=== PATIENT | female | born 1990 | race Caucasian/White ===

== ENCOUNTER 2018-07-19 16:40 | Emergency (ER) | payer OTHER ==
--- NOTE | 2018-07-19 17:14 | Emergency Department Report ---
Blank Doc - Documentation Documentation: 27 y o female presents with zapata, swollen lymphnodes x 6days started with nasal bleed, had a cold before sx started cannot swaLLOW FOOD x 2 days ONLY LIQUID cANNOT OPEN MOUTH DUE TO PAIN This initial assessment diagnostic orders/clinical plan/treatment (s) is/Are subject change based on patient's health status, clinical progression and re- assessment by fellow clinical providers in the ED. Further treatment and work-up at subsequent clinical providers discretion. Patient/guardians urged not to elope from their condition may be serious if not clinically assessed and managed. Initial order include: LABS cT NECK
[2018-07-19 18:09] LABS: Alanine Aminotransferase 14 units/L (7-56); Albumin 3.8 g/dL (3.9-5); BUN/Creatinine Ratio 18; Blood Urea Nitrogen 7 mg/dL (7-17); Calcium 9.1 mg/dL (8.4-10.2); Hemolysis Index 7
[2018-07-19 18:10] LABS: Basophils # (Auto) 0.1 K/mm3 (0.0-0.1); Basophils % (Auto) 0.8 % (0.0-1.8); Eosinophils # (Auto) 0.3 K/mm3 (0.0-0.4); Eosinophils % (Auto) 2.7 % (0.0-4.3); Hemoglobin 10.9 gm/dl (10.1-14.3); Lymphocytes # (Auto) 2.4 K/mm3 (1.2-5.4); Lymphocytes % (Auto) 19.7 % (13.4-35.0); Mean Corpuscular HGB Conc 31 % (30-34); Monocytes # (Auto) 0.6 K/mm3 (0.0-0.8); Platelet Count 453 K/mm3 (140-440); Red Blood Count 5.46 M/mm3 (3.65-5.03); Red Cell Distribution Width 16.7 % (13.2-15.2)
[2018-07-19 18:12] LABS: Mean Corpuscular Volume 64 fl (79-97)
[2018-07-19] MEDS ORDERED: HumuLIN R IV ONE (18:14)
[2018-07-19] MEDS ORDERED: TORADOL IV ONE (18:14)
[2018-07-19] MEDS ORDERED: NACL 0.9% 1000 ML 1,000 ML IV ONE (18:14)
[2018-07-19] MEDS ORDERED: DECADRON IV ONE (18:14)
[2018-07-19] MEDS ORDERED: SUBLIMAZE IV ONE (18:14)
[2018-07-19] MEDS ORDERED: LIDOCAINE VISCOUS 2% MM NR (18:15)
[2018-07-19 18:16] LABS: Bilirubin,Urine NEG (Negative); Blood,Urine NEG (Negative); Color,Urine Yellow (Yellow); Mucus,Urine FEW /HPF; Urobilinogen,Urine < 2.0 mg/dL (<2.0)
--- NOTE | 2018-07-19 18:20 | Emergency Department Report ---
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 The patient only takes insulin. The patient presents to the emergency room today with complaint of nontraumatic neck swelling, gingival pain, inability to open her mouth, reported sore throat, malaise, fatigue, possible fever, not coughing. Reports decreased oral intake. Symptoms present for the past 2-3 days, they're constant, worsened with palpation, range of motion, eating, drinking, decreased with rest. -: Gradual Location: face, neck Radiation: non-radiation Severity scale (0 -10): 10 Consistency: intermittent Improves with: other Worsens with: other - Related Data Previous Rx's Medication Instructions Recorded Last Taken Type Acetaminophen [Acetaminophen ORAL 500 mg PO Q4HR PRN #300 ml 07/19/18 Unknown Rx LIQ] Ondansetron [Zofran Odt] 4 mg PO Q8HR PRN #20 tab.rapdis 07/19/18 Unknown Rx RX: Ibuprofen Oral Liqd [Motrin 400 mg PO QID PRN #1 bottle 07/19/18 Unknown Rx Oral Liq 100 mg/5 ml] RX: Penicillin V Potassium 500 mg PO TID #2 soln.recon 07/19/18 Unknown Rx Allergies Allergy/AdvReac Type Severity Reaction Status Date / Time No Known Allergies Allergy Unverified 07/19/18 18:13 ED Review of Systems ROS: Stated complaint: INFLAMMATION IN THROAT/ HIGH BLOOD SUGAR/DIZZINESS Other details as noted in HPI Constitutional: malaise Eyes: denies: vision change ENT: throat pain. denies: epistaxis, congestion Respiratory: denies: cough Cardiovascular: denies: palpitations Gastrointestinal: nausea Musculoskeletal: arthralgia, myalgia Skin: denies: lesions Neurological: headache, weakness Psychiatric: anxiety ED Past Medical Hx - Past Medical History Previous Medical History?: Yes Hx Hypertension: No Hx CVA: No Hx Heart Attack/AMI: No Hx Congestive Heart Failure: No Hx Diabetes: Yes Hx Deep Vein Thrombosis: No Hx Pulmonary Embolism: No Hx GERD: No Hx Liver Disease: No Hx Renal Disease: No Hx of Cancer: No Hx Sickle Cell Disease: No Hx Arthritis: No Hx Headaches / Migraines: No Hx Seizures: No Hx Kidney Stones: No Hx Psychiatric Treatment: No Hx Asthma: No Hx COPD: No Hx Tuberculosis: No Hx Dementia: No Hx HIV: No - Surgical History Past Surgical History?: No Hx Coronary Stent: No Hx Open Heart Surgery: No Hx Pacemaker: No Hx Internal Defibrillator: No Hx Cholecystectomy: No Hx Appendectomy: No Hx Breast Surgery: No - Social History Smoking Status: Never Smoker Substance Use Type: None - Medications Home Medications: Home Medications Medication Instructions Recorded Confirmed Last Taken Type Acetaminophen [Acetaminophen ORAL 500 mg PO Q4HR PRN #300 ml 07/19/18 Unknown Rx LIQ] Ondansetron [Zofran Odt] 4 mg PO Q8HR PRN #20 tab.rapdis 07/19/18 Unknown Rx RX: Ibuprofen Oral Liqd [Motrin 400 mg PO QID PRN #1 bottle 07/19/18 Unknown Rx Oral Liq 100 mg/5 ml] RX: Penicillin V Potassium 500 mg PO TID #2 soln.recon 07/19/18 Unknown Rx ED Physical Exam - General Limitations: Language Barrier General appearance: alert, in no apparent distress, anxious - Head Head exam: Present: atraumatic, normocephalic - Eye Eye exam: Present: normal appearance, EOMI. Absent: nystagmus - ENT ENT exam: Present: normal exam, normal orophraynx, normal external ear exam, other (he shouldn't is noted intermittently to be speaking in full sentences. At times, does not open her mouth fully, and at other times, she does. She does not have stridor, may have mild trismus.) - Neck Neck exam: Present: normal inspection, tenderness (there is lateral neck tenderness), full ROM, lymphadenopathy. Absent: meningismus - Respiratory Respiratory exam: Present: normal lung sounds bilaterally. Absent: respiratory distress - Cardiovascular Cardiovascular Exam: Present: regular rate, normal rhythm. Absent: systolic murmur, diastolic murmur, rubs, gallop - GI/Abdominal GI/Abdominal exam: Present: soft. Absent: distended, tenderness, guarding, rebound, rigid, pulsatile mass - Extremities Exam Extremities exam: Present: normal inspection, full ROM, other (2+ pulses noted i n the bilateral upper, lower extremities. Compartments soft. No long bony tenderness. The pelvis is stable.). Absent: pedal edema, joint swelling, calf tenderness - Back Exam Back exam: Present: normal inspection, full ROM. Absent: tenderness, CVA tenderness (R), paraspinal tenderness, vertebral tenderness - Neurological Exam Neurological exam: Present: alert, other (Extraocular movements intact. Tongue midline. No facial droop. Facial sensation intact to light touch in the V1, V2, V3 distribution bilaterally. 5 and 5 strength in 4 extremities.. Sensation is intact to light touch in 4 extremities.). Absent: motor sensory deficit - Psychiatric Psychiatric exam: Present: anxious - Skin Skin exam: Present: warm, dry, intact, normal color. Absent: rash ED Course Vital Signs 07/19/18 07/19/18 07/19/18 17:12 17:55 18:28 Temperature 98.4 F Pulse Rate 87 Respiratory 18 18 Rate Blood Pressure 113/66 Blood Pressure [Left] O2 Sat by Pulse 100 100 Oximetry 07/19/18 07/19/18 07/19/18 19:15 20:00 21:01 Temperature 98.3 F Pulse Rate 79 86 83 Respiratory 19 14 11 L Rate Blood Pressure 107/61 116/60 Blood Pressure 116/60 [Left] O2 Sat by Pulse 100 100 96 Oximetry - Reevaluation(s) Reevaluation #1: 07/19/18 18:22 Differential diagnosis, including but not limited to: Pharyngitis, deep space neck infection, hyperglycemia, diabetic ketoacidosis Assessment and plan: 27-year-old female with very sensitive oromucosa, who is noted intermittently to be opening up her mouth, although not completely. Reports pain with opening of her mouth. We will treat her symptoms, give IV fluids, give Decadron, obtain CT scan of the neck, rapid strep screen, and reassess. Reevaluation #2: 07/19/18 19:05 Patient tolerated liquid feeds. Strep screen is positive for strep. CT scan pending. Reevaluation #3: 07/19/18 19:47 Care is transferred to the oncoming ER physician, Dr. Kirsten Espinosa, to follow up on CT scan of the neck, and final reassessment. Patient had an episode of vomiting after another assessment, therefore, anti-medic medications have been requested. ED Medical Decision Making - Lab Data Result diagrams: 07/19/18 17:23 07/19/18 17:23 Vital Signs 07/19/18 07/19/18 17:12 17:55 Temperature 98.4 F Pulse Rate 87 Respiratory 18 Rate Blood Pressure 113/66 O2 Sat by Pulse 100 100 Oximetry Lab Results 07/19/18 07/19/18 07/19/18 Range/Units 17:03 17:15 17:23 WBC 12.0 H (4.5-11.0) K/mm3 RBC 5.46 H (3.65-5.03) M/mm3 Hgb 10.9 (10.1-14.3) gm/dl Hct 35.0 (30.3-42.9) % MCV 64 L (79-97) fl MCH 20 L (28-32) pg MCHC 31 (30-34) % RDW 16.7 H (13.2-15.2) % Plt Count 453 H (140-440) K/mm3 Lymph % (Auto) 19.7 (13.4-35.0) % [place] % (Auto) 5.0 (0.0-7.3) % Eos % (Auto) 2.7 (0.0-4.3) % Baso % (Auto) 0.8 (0.0-1.8) % Lymph # 2.4 (1.2-5.4) K/mm3 [place] # 0.6 (0.0-0.8) K/mm3 Eos # 0.3 (0.0-0.4) K/mm3 Baso # 0.1 (0.0-0.1) K/mm3 Seg Neutrophils % 71.8 H (40.0-70.0) % Seg Neutrophils # 8.6 H (1.8-7.7) K/mm3 Sodium (137-145) mmol/L Potassium (3.6-5.0) mmol/L Chloride (98-107) mmol/L Carbon Dioxide (22-30) mmol/L Anion Gap mmol/L BUN (7-17) mg/dL Creatinine (0.7-1.2) mg/dL Estimated GFR ml/min BUN/Creatinine Ratio % Glucose (65-100) mg/dL POC Glucose 334 H (70-105) Calcium (8.4-10.2) mg/dL Magnesium (1.7-2.3) mg/dL Total Bilirubin (0.1-1.2) mg/dL AST (5-40) units/L ALT (7-56) units/L Alkaline Phosphatase (35-129) units/L Total Creatine Kinase (30-135) units/L Total Protein (6.3-8.2) g/dL Albumin (3.9-5) g/dL Albumin/Globulin Ratio % Urine Color Yellow (Yellow) Urine Turbidity Clear (Clear) Urine pH 5.0 (5.0-7.0) Ur Specific [place] 1.046 H (1.003-1.030) Urine Protein 100 mg/dl (Negative) mg/dL Urine Glucose (UA) >=500 (Negative) mg/dL Urine Ketones Neg (Negative) mg/dL Urine Blood Neg (Negative) Urine Nitrite Neg (Negative) Urine Bilirubin Neg (Negative) Urine Urobilinogen < 2.0 (<2.0) mg/dL Ur Leukocyte Esterase Tr (Negative) Urine WBC (Auto) 20.0 H (0.0-6.0) /HPF Urine RBC (Auto) 3.0 (0.0-6.0) /HPF U Epithel Cells (Auto) 1.0 (0-13.0) /HPF Urine Mucus Few /HPF 07/19/18 07/19/18 Range/Units 17:23 17:34 WBC (4.5-11.0) K/mm3 RBC (3.65-5.03) M/mm3 Hgb (10.1-14.3) gm/dl Hct (30.3-42.9) % MCV (79-97) fl MCH (28-32) pg MCHC (30-34) % RDW (13.2-15.2) % Plt Count (140-440) K/mm3 Lymph % (Auto) (13.4-35.0) % [place] % (Auto) (0.0-7.3) % Eos % (Auto) (0.0-4.3) % Baso % (Auto) (0.0-1.8) % Lymph # (1.2-5.4) K/mm3 [place] # (0.0-0.8) K/mm3 Eos # (0.0-0.4) K/mm3 Baso # (0.0-0.1) K/mm3 Seg Neutrophils % (40.0-70.0) % Seg Neutrophils # (1.8-7.7) K/mm3 Sodium 137 (137-145) mmol/L Potassium 3.8 (3.6-5.0) mmol/L Chloride 99.2 (98-107) mmol/L Carbon Dioxide 24 (22-30) mmol/L Anion Gap 18 mmol/L BUN 7 (7-17) mg/dL Creatinine 0.4 L (0.7-1.2) mg/dL Estimated GFR > 60 ml/min BUN/Creatinine Ratio 18 % Glucose 357 H (65-100) mg/dL POC Glucose (70-105) Calcium 9.1 (8.4-10.2) mg/dL Magnesium 1.90 (1.7-2.3) mg/dL Total Bilirubin 0.30 (0.1-1.2) mg/dL AST 12 (5-40) units/L ALT 14 (7-56) units/L Alkaline Phosphatase 122 (35-129) units/L Total Creatine Kinase 26 L (30-135) units/L Total Protein 8.6 H (6.3-8.2) g/dL Albumin 3.8 L (3.9-5) g/dL Albumin/Globulin Ratio 0.8 % Urine Color (Yellow) Urine Turbidity (Clear) Urine pH (5.0-7.0) Ur Specific [place] (1.003-1.030) Urine Protein (Negative) mg/dL Urine Glucose (UA) (Negative) mg/dL Urine Ketones (Negative) mg/dL Urine Blood (Negative) Urine Nitrite (Negative) Urine Bilirubin (Negative) Urine Urobilinogen (<2.0) mg/dL Ur Leukocyte Esterase (Negative) Urine WBC (Auto) (0.0-6.0) /HPF Urine RBC (Auto) (0.0-6.0) /HPF U Epithel Cells (Auto) (0-13.0) /HPF Urine Mucus /HPF - Radiology Data Radiology results: pending, report reviewed Critical care attestation.: If time is entered above; I have spent that time in minutes in the direct care of this critically ill patient, excluding procedure time. ED Disposition Clinical Impression: Strep pharyngitis, Hyperglycemia Disposition: DC-01 TO HOME OR SELFCARE Is pt being admited?: No Does the pt Need Aspirin: No Condition: Stable Instructions: Strep Throat (ED) Additional Instructions: Advance diet as tolerated. Take the pain medications as needed as directed. Take nausea medication as needed/directed. Take antibiotics as directed. Symptoms will likely persist for the next 3-5 days. Advance diet as able to, and consumed liquids as able to. Patient will be contagious, make certain to wash hands very thoroughly with soap and water after coughing, sneezing, handling foods. Follow up with a primary care doctor or otolaryngology specialist within the next 5-7 days. Return to the emergency room right away with projectile vomiting, change in mental status, confusion, inability to tolerate liquid feeds, uncontrollable nausea, vomiting. Dieta anticipada segn lo tolerado. Retreat los analgsicos segn sea necesario segn las indicaciones. Retreat los medicamentos para las nuseas segn sea necesario / indicado. Retreat los antibiticos segn las indicaciones. Es probable que los sntomas persistan ellen los prximos 3 a 5 nieto. Avanzar en la dieta reynaldo sea posible, y consumir lquidos reynaldo poder. El paciente ser contagioso, asegrese de lavarse chaitanya las marion con agua y jabn despus de toser, estornudar y manipular alimentos. [place] un seguimiento con un mdico de atencin primaria o un especialista en otorrinolaringologa en los prximos 5 a 7 nieto. Regrese a la mars de emergencias de inmediato con vmitos con proyectiles, cambios en el estado mental, confusin, incapacidad para tolerar la alimentacin con lquidos, nuseas incontrolables, vmitos. Prescriptions: Acetaminophen [Acetaminophen ORAL LIQ] 500 mg PO Q4HR PRN #300 ml PRN Reason: Fever >101 RX: Ibuprofen Oral Liqd [Motrin Oral Liq 100 mg/5 ml] 400 mg PO QID PRN #1 bottle PRN Reason: Fever >101 Ondansetron [Zofran Odt] 4 mg PO Q8HR PRN #20 tab.rapdis PRN Reason: Nausea RX: Penicillin V Potassium 500 mg PO TID #2 soln.recon Referrals: ROOSEVELT BOWIE MD [Staff Physician] - 3-5 Days [facility] [Provider Group] - 3-5 Days Print Language: [place]
[2018-07-19] MEDS ORDERED: ZOFRAN IV ONE (19:19)
[2018-07-19] MEDS ORDERED: VEETIDS PO ONE (20:30)
--- NOTE | 2018-07-19 21:28 | Cat Scan Report ---
PROCEDURE: CT NECK W CON TECHNIQUE: Computerized axial tomography of the soft tissue neck was performed following the IV inje ction of iodinated nonionic contrast. CT DOSE LENGTH PRODUCT: mGycm HISTORY: neck pain swelling COMPARISONS: None . TECHNICAL QUALITY: Satisfactory. FINDINGS: Skull base: Visualized portions are normal . Paranasal sinuses: Visualized portions are normal . Nasopharynx: Normal . Oral cavity: Normal . Epiglottis/vallecula: Normal . Larynx/pyriform sinuses: Normal . Thyroid gland: Normal . Lymph nodes: There are multiple enlarged lymph nodes involving bilateral anterior cervical chains and left submandibular region largest measuring 1.2 x 1.9 x 3.1 centimeters and located in the right upp er cervical region. Salivary glands: Normal . Upper thorax: Normal . IMPRESSION: Bilateral cervical and left submandibular lymphadenopathy. A neoplastic etiology such as lymphoma cannot be excluded. This document is electronically signed by Ac Mckenzie MD., July 19 2018 09:25:57 PM ET
[2018-07-19 22:05] VITALS: BP 116/60
== END 2018-07-19 22:10 | disposition home or self-care (01) ==
LOC: ED 16:40
DX: J02.0 Streptococcal pharyngitis (principal); E11.65 Type 2 diabetes mellitus with hyperglycemia; M79.10 Myalgia, unspecified site; F41.9 Anxiety disorder, unspecified
CPT/HCPCS: 36415; 70491; 80053; 81001; 82550; 82805; 82962; 83735; 84703; 85025; 87430; 96361; 96374; 96375; 99284; J1100; J1885; J2405; J3010; J7030; Q9967; J1815

== ENCOUNTER 2018-08-06 18:11 | Emergency (ER) | payer OTHER ==
--- NOTE | 2018-08-06 23:02 | Emergency Department Report ---
ED Abdominal Pain HPI - General Chief Complaint: Urogenital-Female Stated Complaint: ABD PAIN Time Seen by Provider: 08/06/18 22:28 Source: EMS Mode of arrival: Stretcher Limitations: Language Barrier - History of Present Illness Initial Comments: Patient 7-year-old female who presents for right flank pain for the past week plans follow with N exacerbated by voiding pain is relieved by nothing Patient does not know vomiting last menstrual period 3 weeks ago no fever chills no history of renal stones MD Complaint: abdominal pain Onset/Timin -: week(s) Location: R flank Radiation: R flank Migration to: suprapubic Severity: moderate Severity scale (0 -10): 10 Quality: sharp Consistency: constant Improves With: nothing Worsens With: other ( voiding) Associated Symptoms: nausea - Related Data LMP (females 10-50): 3 weeks Previous Rx's Medication Instructions Recorded Last Taken Type Acetaminophen [Acetaminophen ORAL 500 mg PO Q4HR PRN #300 ml 07/19/18 Unknown Rx LIQ] Ibuprofen Oral Liqd [Motrin Oral 400 mg PO QID PRN #1 bottle 07/19/18 Unknown Rx Liq 100 mg/5 ml] Ondansetron [Zofran Odt] 4 mg PO Q8HR PRN #20 tab.rapdis 07/19/18 Unknown Rx Penicillin V Potassium 500 mg PO TID #2 soln.recon 07/19/18 Unknown Rx Ciprofloxacin HCl [Cipro] 500 mg PO BID 10 Days #20 tablet 08/07/18 Unknown Rx Tamsulosin HCl [Flomax] 0.4 mg PO DAILY #30 cap.er.24h 08/07/18 Unknown Rx Tramadol HCl [Ultram] 50 mg PO Q6H PRN #12 tablet 08/07/18 Unknown Rx Allergies Allergy/AdvReac Type Severity Reaction Status Date / Time No Known Allergies Allergy Unverified 07/19/18 18:13 ED Review of Systems ROS: Stated complaint: ABD PAIN Other details as noted in HPI Constitutional: denies: chills, fever Eyes: denies: eye pain, eye discharge, vision change ENT: denies: ear pain, throat pain Respiratory: denies: cough, shortness of breath, wheezing Cardiovascular: denies: chest pain, palpitations Endocrine: no symptoms reported Gastrointestinal: abdominal pain, nausea. denies: diarrhea Genitourinary: urgency, dysuria, frequency. denies: hematuria, discharge, abnormal menses, dyspareunia Musculoskeletal: denies: back pain, joint swelling, arthralgia Skin: denies: rash, lesions Neurological: denies: headache, weakness, paresthesias Psychiatric: denies: anxiety, depression Hematological/Lymphatic: denies: easy bleeding, easy bruising ED Past Medical Hx - Past Medical History Previous Medical History?: Yes Hx Hypertension: No Hx CVA: No Hx Heart Attack/AMI: No Hx Congestive Heart Failure: No Hx Diabetes: Yes (type 1) Hx Deep Vein Thrombosis: No Hx Pulmonary Embolism: No Hx GERD: No Hx Liver Disease: No Hx Renal Disease: No Hx Sickle Cell Disease: No Hx Arthritis: No Hx Headaches / Migraines: No Hx Seizures: No Hx Kidney Stones: No Hx Psychiatric Treatment: No Hx Asthma: No Hx COPD: No Hx Tuberculosis: No Hx Dementia: No Hx HIV: No - Surgical History Past Surgical History?: No Hx Coronary Stent: No Hx Open Heart Surgery: No Hx Pacemaker: No Hx Internal Defibrillator: No Hx Cholecystectomy: No Hx Appendectomy: No Hx Breast Surgery: No - Social History Smoking Status: Never Smoker Substance Use Type: None - Medications Home Medications: Home Medications Medication Instructions Recorded Confirmed Last Taken Type Acetaminophen [Acetaminophen ORAL 500 mg PO Q4HR PRN #300 ml 07/19/18 Unknown Rx LIQ] Ibuprofen Oral Liqd [Motrin Oral 400 mg PO QID PRN #1 bottle 07/19/18 Unknown Rx Liq 100 mg/5 ml] Ondansetron [Zofran Odt] 4 mg PO Q8HR PRN #20 tab.rapdis 07/19/18 Unknown Rx Penicillin V Potassium 500 mg PO TID #2 soln.recon 07/19/18 Unknown Rx Ciprofloxacin HCl [Cipro] 500 mg PO BID 10 Days #20 tablet 08/07/18 Unknown Rx Tamsulosin HCl [Flomax] 0.4 mg PO DAILY #30 cap.er.24h 08/07/18 Unknown Rx Tramadol HCl [Ultram] 50 mg PO Q6H PRN #12 tablet 08/07/18 Unknown Rx ED Physical Exam - General Limitations: Language Barrier General appearance: alert, in no apparent distress - Head Head exam: Present: atraumatic, normocephalic - Eye Eye exam: Present: normal appearance, PERRL, EOMI Pupils: Present: normal accommodation - ENT ENT exam: Present: mucous membranes moist - Neck Neck exam: Present: normal inspection, full ROM. Absent: tenderness, lymphadenopathy, thyromegaly - Respiratory Respiratory exam: Present: normal lung sounds bilaterally. Absent: respiratory distress, wheezes, stridor, chest wall tenderness - Cardiovascular Cardiovascular Exam: Present: regular rate, normal rhythm, normal heart sounds. Absent: systolic murmur, diastolic murmur, rubs, gallop - GI/Abdominal GI/Abdominal exam: Present: soft, tenderness (right flank ), normal bowel sounds. Absent: distended, guarding, rebound, rigid, bruit, hernia - Rectal Rectal exam: Present: deferred - Extremities Exam Extremities exam: Present: normal inspection - Back Exam Back exam: Present: normal inspection, full ROM, tenderness, CVA tenderness (R). Absent: muscle spasm, paraspinal tenderness, rash noted - Neurological Exam Neurological exam: Present: alert, oriented X3, CN II-XII intact, normal gait, reflexes normal - Psychiatric Psychiatric exam: Present: normal affect, normal mood - Skin Skin exam: Present: warm, dry, intact, normal color. Absent: rash ED Course Vital Signs 08/06/18 08/06/18 08/06/18 18:30 18:44 23:17 Temperature 98 F 98 F Pulse Rate 111 H 111 H Respiratory 18 18 20 Rate Blood Pressure 103/55 Blood Pressure 103/55 [Right] O2 Sat by Pulse 98 98 Oximetry ED Medical Decision Making - Lab Data Result diagrams: 08/06/18 22:36 08/06/18 22:36 Labs 08/06/18 08/06/18 08/07/18 22:36 22:36 00:45 WBC 16.1 H RBC 5.17 H Hgb 10.0 L Hct 32.9 MCV 64 L MCH 19 L MCHC 30 RDW 17.1 H Plt Count 269 Lymph % (Auto) 9.4 L [place] % (Auto) 4.3 Eos % (Auto) 0.0 Baso % (Auto) 0.2 Lymph # 1.5 [place] # 0.7 Eos # 0.0 Baso # 0.0 Seg Neutrophils % 86.1 H Seg Neutrophils # 13.9 H Sodium 131 L Potassium 3.9 Chloride 97.2 L Carbon Dioxide 18 L Anion Gap 20 BUN 7 Creatinine 0.3 L Estimated GFR > 60 BUN/Creatinine Ratio 23 Glucose 318 H Calcium 8.7 HCG, Qual Negative Urine Color Urine Turbidity Urine pH Ur Specific [place] Urine Protein Urine Glucose (UA) Urine Ketones Urine Blood Urine Nitrite Urine Bilirubin Urine Urobilinogen Ur Leukocyte Esterase Urine WBC (Auto) Urine RBC (Auto) U Epithel Cells (Auto) Urine Bacteria (Auto) Urine Mucus 08/07/18 02:37 WBC RBC Hgb Hct MCV MCH MCHC RDW Plt Count Lymph % (Auto) [place] % (Auto) Eos % (Auto) Baso % (Auto) Lymph # [place] # Eos # Baso # Seg Neutrophils % Seg Neutrophils # Sodium Potassium Chloride Carbon Dioxide Anion Gap BUN Creatinine Estimated GFR BUN/Creatinine Ratio Glucose Calcium HCG, Qual Urine Color Yellow Urine Turbidity Slightly-cloudy Urine pH 5.0 Ur Specific [place] 1.036 H Urine Protein 30 mg/dl Urine Glucose (UA) >=500 Urine Ketones 80 Urine Blood Neg Urine Nitrite Pos Urine Bilirubin Neg Urine Urobilinogen < 2.0 Ur Leukocyte Esterase Sm Urine WBC (Auto) 56.0 H Urine RBC (Auto) 6.0 U Epithel Cells (Auto) 4.0 Urine Bacteria (Auto) 2+ Urine Mucus Few - Radiology Data Radiology results: report reviewed, image reviewed FINDINGS: The lung bases are clear. Pleural fluid is not seen. The liver, gallbladder, biliary tree, pancreas, spleen, and adrenal glands appear normal. The kidneys reveal very mild right-sided hydronephrosis with mild perinephric stranding. A stone is not seen in the right ureter. A recently passed stone cannot be excluded. Another possibility is right- sided pyelonephritis. The bowel loops are normal in caliber. The appendix is not enlarged. In the pelvis the uterus and bladder appear normal. There are several small calcifications along the floor of the pelvis on the left side. These are most likely phleboliths. The ureters cannot be followed into the pelvis. There is no evidence of free fluid or adenopathy. The skeletal structures do not show any acute changes. IMPRESSION: Mild right-sided hydronephrosis with mild perinephric stranding. A stone is not seen in the right ureter. A recently passed stone cannot be ruled out. Another possibility is right-sided pyelonephritis. No evidence of bowel obstruction or ileus. Appendix appears normal. 2 calcifications along the floor of the pelvis on the left side. These are most likely phleboliths.. This document is electronically signed by Yuan Duggan MD., August 07 2018 01:55:38 AM ET Transcribed By: RB Dictated By: YUAN DUGGAN MD Electronically Authenticated By: YUAN DUGGAN MD Signed Date/Time: 08/07/18 0158 DD/ 2 TD/TT: 08/07/18143 - Medical Decision Making CT renal stones, recently passe renal stone, mild hydronephrosis left , UA:luek, wbc, rbc, plan. ivf x 2 liters, rocephin 1g ivpb, dc to home with xochilt for ultram, flomax, cipro, follow up with urology in 2-3 days return to ed if symptoms worsen, pt and family members verbalized agreement and understanding of same. Critical care attestation.: If time is entered above; I have spent that time in minutes in the direct care of this critically ill patient, excluding procedure time. ED Disposition Clinical Impression: Kidney stones UTI (urinary tract infection) Qualifiers: Urinary tract infection type: acute cystitis Hematuria presence: without hematuria Qualified Code(s): N30.00 - Acute cystitis without hematuria Disposition: DC-01 TO HOME OR SELFCARE Is pt being admited?: No Does the pt Need Aspirin: No Condition: Stable Instructions: Kidney Stones (ED), How to Strain Your Urine (ED) Prescriptions: Ciprofloxacin HCl [Cipro] 500 mg PO BID 10 Days #20 tablet Tamsulosin HCl [Flomax] 0.4 mg PO DAILY #30 cap.er.24h Tramadol HCl [Ultram] 50 mg PO Q6H PRN #12 tablet PRN Reason: pain Referrals: VIJI PEREZ MD [Staff Physician] - 3-5 Days SANJIV BISHOP MD [Staff Physician] - 3-5 Days Forms: Work/School Release Form(ED) Time of Disposition: 03:19 Print Language: [place]
[2018-08-06] MEDS ORDERED: ZOFRAN IV ONE (23:16)
[2018-08-06] MEDS ORDERED: NACL 0.9% 1000 ML 1,000 ML IV ONE (23:16)
[2018-08-06] MEDS ORDERED: TORADOL IV ONE (23:16)
[2018-08-06 23:19] LABS: Basophils % (Auto) 0.2 % (0.0-1.8); Hematocrit 32.9 % (30.3-42.9); Lymphocytes # (Auto) 1.5 K/mm3 (1.2-5.4); Lymphocytes % (Auto) 9.4 % (13.4-35.0); Mean Corpuscular HGB Conc 30 % (30-34); Mean Corpuscular Volume 64 fl (79-97); Monocytes # (Auto) 0.7 K/mm3 (0.0-0.8); Monocytes % (Auto) 4.3 % (0.0-7.3); Platelet Count 269 K/mm3 (140-440); Red Blood Count 5.17 M/mm3 (3.65-5.03); Red Cell Distribution Width 17.1 % (13.2-15.2)
[2018-08-06 23:38] LABS: BUN/Creatinine Ratio 23; Blood Urea Nitrogen 7 mg/dL (7-17); Calcium 8.7 mg/dL (8.4-10.2); Hemolysis Index 12
[2018-08-07] MEDS ORDERED: NACL 0.9% 1000 ML 1,000 ML IV ONE (00:37)
[2018-08-07] MEDS ORDERED: ROCEPHIN/NS 1 GM/50 ML 1 GM/50 ML BAG IV ONE (01:21)
--- NOTE | 2018-08-07 01:58 | Cat Scan Report ---
PROCEDURE: CT ABDOMEN PELVIS WO CON TECHNIQUE: Routine axial imaging was obtained of the abdomen and pelvis without oral or IV contrast. Sagittal and coronal reconstructions were reviewed. HISTORY: abd pain COMPARISONS: None FINDINGS: The lung bases are clear. Pleural fluid is not seen. The liver, gallbladder, biliary tree, pancreas, spleen, and adrenal glands appear normal. The kidneys reveal very mild right-sided hydronephrosis with mild perinephric stranding. A stone is not seen in the right ureter. A recently passed stone cannot be excluded. Another possibility is right-sided pyel onephritis. The bowel loops are normal in caliber. The appendix is not enlarged. In the pelvis the uterus and nicki dder appear normal. There are several small calcifications along the floor of the pelvis on the left side. These are most likely phleboliths. The ureters cannot be followed into the pelvis. There is no evidence of free fluid or adenopathy. The skeletal structures do not show any acute changes. IMPRESSION: Mild right-sided hydronephrosis with mild perinephric stranding. A stone is not seen in the right ure ter. A recently passed stone cannot be ruled out. Another possibility is right-sided pyelonephritis. No evidence of bowel obstruction or ileus. Appendix appears normal. 2 calcifications along the floor of the pelvis on the left side. These are most likely phleboliths.. This document is electronically signed by Tin Duggan MD., August 07 2018 01:55:38 AM ET
[2018-08-07 03:13] LABS: Bacteria,Urine 2+ /HPF (Negative); Bilirubin,Urine NEG (Negative); Blood,Urine NEG (Negative); Color,Urine Yellow (Yellow); Mucus,Urine FEW /HPF; Urobilinogen,Urine < 2.0 mg/dL (<2.0)
[2018-08-07 03:27] LABS: HCG Qualitative,Urine Negative (Negative)
[2018-08-07 03:34] VITALS: BP 103/63
== END 2018-08-07 03:34 | disposition home or self-care (01) ==
LOC: ED 18:11
DX: N20.0 Calculus of kidney (principal); N30.00 Acute cystitis without hematuria; E10.9 Type 1 diabetes mellitus without complications
CPT/HCPCS: 36415; 74176; 80048; 81001; 81025; 84703; 85025; 96365; 96375; 99284; J0696; J1885; J2405; J7030